=== PATIENT | female | born 1960 | race Caucasian/White ===

== ENCOUNTER 2021-09-01 10:51 | Emergency (ER) | payer MEDICARE ==
[~2021-09-01 10:51] MED LIST: ALBUTEROL2.5 MG/3 M INH; ALDACTONE 25MG25 MG PO; ATROVENT-HFA12.9 GM INH; CLINDAMYCIN HC300 MG PO; DOXYCYCLINE HY100 MG PO; ECOTRIN81 MG PO; FERROUS SULFAT325 M2 PO; FLOVENT INH; HUMULIN N100 UNIT/1 SC; HYDROCODON-ACE1 EAC4 PO; IPRAT-ALBUT 0.5-3 ML INH; K-DUR TAB 20 M20 MEQ PO; KEFLEX500 MG PO; LASIX40 MG PO; LEVAQUIN500 MG PO; LOPRESSOR 25 MG25 MG PO; MIRALAX17 GM PO; MUCINEX1200 MG PO; NASONEX17 GM; NEURONTIN 300300 MG PO; NORCO 5-325 TA1 EACH PO; NOVOLIN N100 UNIT/1 SQ; NOVOLIN R100 UNIT/2 SQ; NOVOLOG100 UNIT/1 SC; OMEPRAZOLE20 M1 PO; PREDNISONE 20 M20 MG PO; PREVACID30 MG PO; SURFAK240 MG PO; SYMBICORT 16010.2 GM INH; TRAMADOL HCL50 MG PO; VANCOMYCIN IV; VENTOLIN HFA 66.7 GM INH; VIBRAMYCIN 100100 MG GT; VIBRAMYCIN100 MG PO; VITAMIN C500 M4 PO; XOPENEX HFA15 GM INH; ZAROXOLYN/DIUL2.5 MG PO; [UNRECOGNIZED DRUG - OTHER] INH
[2021-09-01 12:24] LABS: HEMOGLOBIN 8.4 gm/dl (12.3-15.3); RED BLOOD COUNT 3.06 M/UL (4.00-5.10); WHITE BLOOD COUNT 6.8 K/UL (4.5-11.0)
== END 2021-09-01 13:35 | disposition home or self-care (01) ==
LOC: ER1 10:51
PROVIDERS: Physician Assistant
DX: D64.9 Anemia, unspecified (principal); N28.9 Disorder of kidney and ureter, unspecified; E11.9 Type 2 diabetes mellitus without complications; I50.9 Heart failure, unspecified; Z95.0 Presence of cardiac pacemaker
CPT/HCPCS: 80048; 81001; 85025; 99283

== ENCOUNTER 2021-09-27 20:57 | Inpatient (IN) | payer MEDICARE, MEDICAID ==
[~2021-09-27] VITALS: Ht 170.2 cm; Wt 116.8 kg
[~2021-09-27 20:57] MED LIST changes: -K-DUR TAB 20 M20 MEQ PO; -NEURONTIN 300300 MG PO; +NEURONTIN600 MG PO; +POTASSIUM CHLO20 ME2 PO; +PROAIR HFA8.5 GM INH; -VENTOLIN HFA 66.7 GM INH
[2021-09-27 22:06] LABS: HEMOGLOBIN 7.2 gm/dl (12.3-15.3); RED BLOOD COUNT 2.74 M/UL (4.00-5.10); WHITE BLOOD COUNT 6.8 K/UL (4.5-11.0)
[2021-09-27 22:20] LABS: BUN/CREATININE RATIO 22 (0-10)
[2021-09-28 08:17] LABS: RED BLOOD COUNT 2.76 M/UL (4.00-5.10); WHITE BLOOD COUNT 5.1 K/UL (4.5-11.0)
[2021-09-28 08:24] LABS: HEMOGLOBIN 6.9 gm/dl (12.3-15.3)
[2021-09-28 09:13] LABS: HEMOGLOBIN 7.3 gm/dl (12.3-15.3)
[2021-09-28] MEDS ORDERED: ELIQUIS5 MG PO (14:59)
--- NOTE | 2021-09-28 18:15 | NUR ---
contacted EMS for transport c/o Suzie and provided all information and Ms. Lawson took information and stated will call back.
[2021-09-29 04:52] LABS: HEMOGLOBIN 7.4 gm/dl (12.3-15.3); RED BLOOD COUNT 2.78 M/UL (4.00-5.10); WHITE BLOOD COUNT 4.7 K/UL (4.5-11.0)
[2021-09-29] MEDS ORDERED: MEDROL DOSEPAK 24 MG PO (10:24)
[2021-09-29] MEDS ORDERED: LASIX40 MG PO (10:24)
--- NOTE | 2021-09-29 10:36 | NUR ---
PATIENT RA SAT 82-86%
== END 2021-09-29 14:35 | disposition home or self-care (01) | DRG 189 ==
LOC: ER1 20:57 → CDU 23:57 → M/S 09-28 16:39
PROVIDERS: Internal Medicine; Physician Assistant; ADMIT Internal Medicine
PROC: 30233N1 Transfusion of Nonautologous Red Blood Cells into Peripheral Vein, Percutaneous Approach (ICD-10-PCS; principal; 2021-09-28)
DX: J96.01 Acute respiratory failure with hypoxia (principal); I50.23 Acute on chronic systolic (congestive) heart failure; I13.0 Hypertensive heart and chronic kidney disease with heart failure and stage 1 through stage 4 chronic kidney disease, or unspecified chronic kidney disease; J40 Bronchitis, not specified as acute or chronic; D63.1 Anemia in chronic kidney disease; E11.22 Type 2 diabetes mellitus with diabetic chronic kidney disease; E11.51 Type 2 diabetes mellitus with diabetic peripheral angiopathy without gangrene; I49.5 Sick sinus syndrome; N18.30 Chronic kidney disease, stage 3 unspecified; E66.9 Obesity, unspecified; Z95.0 Presence of cardiac pacemaker; Z79.01 Long term (current) use of anticoagulants; Z88.1 Allergy status to other antibiotic agents; Z98.891 History of uterine scar from previous surgery; Z89.431 Acquired absence of right foot; Z90.49 Acquired absence of other specified parts of digestive tract; Z88.0 Allergy status to penicillin; Z88.2 Allergy status to sulfonamides; Z68.37 Body mass index [BMI] 37.0-37.9, adult
CPT/HCPCS: 0240U; 36415; 36430; 71045; 80048; 80053; 81001; 82550; 82553; 82962; 83735; 83874; 83880; 84484; 85014; 85018; 85025; 85027; 85610; 85730; 86850; 86900; 86901; 86920; 87086; 93005; 94640; 94664; 96374; 96376; 99285; J1940; J2920; P9016

== ENCOUNTER 2021-11-13 15:22 | Inpatient (IN) | payer MEDICARE ==
[~2021-11-13] VITALS: Ht 170.2 cm; Wt 121.6 kg
[~2021-11-13 15:22] MED LIST changes: +ELIQUIS5 MG PO; +MEDROL DOSEPAK 24 MG PO; -POTASSIUM CHLO20 ME2 PO
[2021-11-13 17:32] LABS: RED BLOOD COUNT 2.38 M/UL (4.00-5.10); WHITE BLOOD COUNT 7.1 K/UL (4.5-11.0)
[2021-11-13 17:34] LABS: HEMOGLOBIN 6.7 gm/dl (12.3-15.3)
[2021-11-13] MEDS ORDERED: ENTRESTO 24 MG1 EACH PO (20:38)
[2021-11-13] MEDS ORDERED: ASPIRIN81 MG PO (20:40)
--- NOTE | 2021-11-13 20:57 | NUR ---
NOTIFIED DR LAYNE TO RESUME HOME MEDICATIONS. RECIEVED ORDERS TO RESUME GABAPENTIN BECAUSE PT WAS REQUESTING IT. RECIEVED NO FURTHER ORDERS. WILL CONTINUE TO MONITOR.
[2021-11-14 06:08] LABS: RED BLOOD COUNT 2.3 M/UL (4.00-5.10); WHITE BLOOD COUNT 5.5 K/UL (4.5-11.0)
[2021-11-14 06:11] LABS: HEMOGLOBIN 6.5 gm/dl (12.3-15.3)
--- NOTE | 2021-11-14 06:14 | NUR ---
NOTIFIED DR LAYNE OF CRITICAL HGB OF 6.5. RECIEVED ORDERS. WILL CONTINUE TO MONITOR.
[2021-11-14] MEDS ORDERED: FUROSEMIDE40 MG PO (12:39)
[2021-11-14 16:15] LABS: HEMOGLOBIN 8.9 gm/dl (12.3-15.3)
[2021-11-14] MEDS ORDERED: OMEPRAZOLE20 M1 PO (20:40)
[2021-11-14] MEDS ORDERED: POTASSIUM CHLO20 ME2 PO (21:38)
[2021-11-15 06:59] LABS: WHITE BLOOD COUNT 6.4 K/UL (4.5-11.0)
[2021-11-15 07:18] LABS: RED BLOOD COUNT 2.97 M/UL (4.00-5.10)
--- NOTE | 2021-11-16 09:02 | NUR ---
Patient has a bp reading of 91/45, patient says that her bp normally runs low. made aware.
[2021-11-16] MEDS ORDERED: FUROSEMIDE40 MG PO (11:19)
== END 2021-11-16 13:22 | disposition home or self-care (01) | DRG 811 ==
LOC: ER1 15:22 → M/S 18:16 → CDU 18:16 → M/S 19:56
PROVIDERS: Emergency Medicine; Internal Medicine; ADMIT Internal Medicine
PROC: 30233N1 Transfusion of Nonautologous Red Blood Cells into Peripheral Vein, Percutaneous Approach (ICD-10-PCS; principal; 2021-11-13)
PROC: B24BZZZ Ultrasonography of Heart with Aorta (ICD-10-PCS; 2021-11-14)
DX: D62 Acute posthemorrhagic anemia (principal); I50.23 Acute on chronic systolic (congestive) heart failure; J96.21 Acute and chronic respiratory failure with hypoxia; I13.0 Hypertensive heart and chronic kidney disease with heart failure and stage 1 through stage 4 chronic kidney disease, or unspecified chronic kidney disease; N17.9 Acute kidney failure, unspecified; E87.2 Acidosis; E87.1 Hypo-osmolality and hyponatremia; Z68.41 Body mass index [BMI] 40.0-44.9, adult; Z20.822 Contact with and (suspected) exposure to COVID-19; E11.22 Type 2 diabetes mellitus with diabetic chronic kidney disease; N18.9 Chronic kidney disease, unspecified; E66.01 Morbid (severe) obesity due to excess calories; E87.6 Hypokalemia; E11.65 Type 2 diabetes mellitus with hyperglycemia; K21.9 Gastro-esophageal reflux disease without esophagitis; I49.5 Sick sinus syndrome; W18.30XA Fall on same level, unspecified, initial encounter; H91.8X3 Other specified hearing loss, bilateral; E86.1 Hypovolemia; I73.9 Peripheral vascular disease, unspecified; R53.81 Other malaise; K59.00 Constipation, unspecified; Z79.4 Long term (current) use of insulin; Z95.810 Presence of automatic (implantable) cardiac defibrillator; Z90.49 Acquired absence of other specified parts of digestive tract; Z88.1 Allergy status to other antibiotic agents; Z88.0 Allergy status to penicillin; Z88.2 Allergy status to sulfonamides; Z88.8 Allergy status to other drugs, medicaments and biological substances
CPT/HCPCS: ECHO; 36415; 71045; 73502; 80048; 80053; 82550; 82553; 82962; 83735; 83880; 84484; 85014; 85018; 85025; 85027; 85610; 85730; 86850; 86900; 86901; 86920; 93005; 93306; 94640; 94664; 94760; 96374; 97162; 97530; 97530-GP-CQ; 99285; J1940; P9016; U0002

== ENCOUNTER 2021-11-24 14:41 | Emergency (ER) | payer MEDICARE ==
[~2021-11-24 14:41] MED LIST changes: +ASPIRIN81 MG PO; +ENTRESTO 24 MG1 EACH PO; +FUROSEMIDE40 MG PO; +POTASSIUM CHLO20 ME2 PO
[2021-11-24 15:52] LABS: HEMOGLOBIN 7.9 gm/dl (12.3-15.3); RED BLOOD COUNT 2.91 M/UL (4.00-5.10); WHITE BLOOD COUNT 6.3 K/UL (4.5-11.0)
== END 2021-11-24 17:20 | disposition home or self-care (01) ==
LOC: ER1 14:41
PROVIDERS: Emergency Medicine
DX: I11.0 Hypertensive heart disease with heart failure (principal); I50.9 Heart failure, unspecified; D16.21 Benign neoplasm of long bones of right lower limb; Z20.822 Contact with and (suspected) exposure to COVID-19; E11.9 Type 2 diabetes mellitus without complications; D64.9 Anemia, unspecified; Z88.2 Allergy status to sulfonamides; Z88.0 Allergy status to penicillin; Z88.1 Allergy status to other antibiotic agents; Z79.4 Long term (current) use of insulin
CPT/HCPCS: 0240U; 71045; 73562; 80053; 82550; 82553; 83735; 83880; 84100; 84439; 84443; 84484; 85025; 93005; 96374; 99285

== ENCOUNTER 2021-12-28 00:48 | Inpatient (IN) | payer MEDICARE ==
[~2021-12-28] VITALS: Ht 170.2 cm; Wt 122.5 kg
[~2021-12-28 00:48] MED LIST changes: +ASPIRIN EC81 MG PO; -ASPIRIN81 MG PO
[2021-12-28 03:53] LABS: RED BLOOD COUNT 2.41 M/UL (4.00-5.10); WHITE BLOOD COUNT 12.5 K/UL (4.5-11.0)
[2021-12-28 03:59] LABS: HEMOGLOBIN 5.9 gm/dl (12.3-15.3)
[2021-12-28] MEDS ORDERED: AZELASTINE137 MCG/0. (10:04)
[2021-12-28] MEDS ORDERED: FLONASE 0.05% N16 GM (10:05)
[2021-12-28] MEDS ORDERED: TRAMADOL HCL50 MG PO (10:06)
[2021-12-28 18:32] LABS: HEMOGLOBIN 7.3 gm/dl (12.3-15.3); WHITE BLOOD COUNT 11.1 K/UL (4.5-11.0)
[2021-12-28 19:02] LABS: RED BLOOD COUNT 2.83 M/UL (4.00-5.10)
[2021-12-29 02:26] LABS: RED BLOOD COUNT 2.72 M/UL (4.00-5.10); WHITE BLOOD COUNT 9.4 K/UL (4.5-11.0)
[2021-12-29 18:09] LABS: HEMOGLOBIN 7.8 gm/dl (12.3-15.3)
[2021-12-30 01:47] LABS: HEMOGLOBIN 8.2 gm/dl (12.3-15.3)
[2021-12-30 01:52] LABS: RED BLOOD COUNT 3.19 M/UL (4.00-5.10); WHITE BLOOD COUNT 12.8 K/UL (4.5-11.0)
[2021-12-31 02:30] LABS: HEMOGLOBIN 7.4 gm/dl (12.3-15.3); RED BLOOD COUNT 2.89 M/UL (4.00-5.10); WHITE BLOOD COUNT 10.6 K/UL (4.5-11.0)
[2022-01-01 02:08] LABS: HEMOGLOBIN 7.6 gm/dl (12.3-15.3); RED BLOOD COUNT 2.94 M/UL (4.00-5.10); WHITE BLOOD COUNT 11.2 K/UL (4.5-11.0)
[2022-01-01] MEDS ORDERED: FUROSEMIDE40 MG PO (09:36)
[2022-01-01] MEDS ORDERED: LEVOFLOXACIN500 MG PO (09:38)
[2022-01-02 16:11] LABS: A/G RATIO 1.1 (0.7-1.7); ALBUMIN 2.8 g/dL (2.9-4.4); ALPHA-1-GLOBULIN 0.3 g/dL (0.0-0.4); ALPHA-2-GLOBULIN 0.9 g/dL (0.4-1.0); BETA GLOBULIN 0.9 g/dL (0.7-1.3); GAMMA GLOBULIN 0.7 g/dL (0.4-1.8); GLOBULIN, TOTAL 2.7 g/dL (2.2-3.9); IMMUNOGLOBULIN A, QN, SERUM 366 mg/dL (87-352); IMMUNOGLOBULIN G, QN, SERUM 674 mg/dL (586-1602); IMMUNOGLOBULIN M, QN, SERUM 59 mg/dL (26-217); M-SPIKE Not Observed g/dL (Not Observed); PROTEIN, TOTAL, SERUM 5.5 g/dL (6.0-8.5)
== END 2022-01-01 16:15 | disposition home or self-care (01) | DRG 811 ==
LOC: ER1 00:48 → PROG CARE 06:39 → CDU 06:39 → PROG CARE 17:28
PROVIDERS: Family Medicine; Internal Medicine; ADMIT Internal Medicine
PROC: 30233N1 Transfusion of Nonautologous Red Blood Cells into Peripheral Vein, Percutaneous Approach (ICD-10-PCS; principal; 2021-12-29)
PROC: B24BZZZ Ultrasonography of Heart with Aorta (ICD-10-PCS; 2021-12-29)
PROC: 0DJ08ZZ Inspection of Upper Intestinal Tract, Via Natural or Artificial Opening Endoscopic (ICD-10-PCS; 2021-12-30)
PROC: 0W3P8ZZ Control Bleeding in Gastrointestinal Tract, Via Natural or Artificial Opening Endoscopic (ICD-10-PCS; 2021-12-30)
DX: D62 Acute posthemorrhagic anemia (principal); J18.9 Pneumonia, unspecified organism; J96.01 Acute respiratory failure with hypoxia; Z20.822 Contact with and (suspected) exposure to COVID-19; I50.43 Acute on chronic combined systolic (congestive) and diastolic (congestive) heart failure; I21.A1 Myocardial infarction type 2; K50.00 Crohn's disease of small intestine without complications; N39.0 Urinary tract infection, site not specified; N17.9 Acute kidney failure, unspecified; I13.0 Hypertensive heart and chronic kidney disease with heart failure and stage 1 through stage 4 chronic kidney disease, or unspecified chronic kidney disease; Z68.41 Body mass index [BMI] 40.0-44.9, adult; Q43.8 Other specified congenital malformations of intestine; K31.819 Angiodysplasia of stomach and duodenum without bleeding; N18.30 Chronic kidney disease, stage 3 unspecified; D63.1 Anemia in chronic kidney disease; E11.22 Type 2 diabetes mellitus with diabetic chronic kidney disease; I49.5 Sick sinus syndrome; B96.1 Klebsiella pneumoniae [K. pneumoniae] as the cause of diseases classified elsewhere; E66.01 Morbid (severe) obesity due to excess calories; R53.81 Other malaise; I48.91 Unspecified atrial fibrillation; Z99.3 Dependence on wheelchair; K44.9 Diaphragmatic hernia without obstruction or gangrene; K64.8 Other hemorrhoids; K63.5 Polyp of colon; K22.2 Esophageal obstruction; I11.0 Hypertensive heart disease with heart failure; K21.9 Gastro-esophageal reflux disease without esophagitis; E11.51 Type 2 diabetes mellitus with diabetic peripheral angiopathy without gangrene; Z79.4 Long term (current) use of insulin; Z79.2 Long term (current) use of antibiotics; Z79.82 Long term (current) use of aspirin; Z79.01 Long term (current) use of anticoagulants; Z95.0 Presence of cardiac pacemaker; Z89.431 Acquired absence of right foot; Z98.891 History of uterine scar from previous surgery; Z88.1 Allergy status to other antibiotic agents; Z88.0 Allergy status to penicillin; Z88.2 Allergy status to sulfonamides; Z74.01 Bed confinement status; Z87.440 Personal history of urinary (tract) infections
CPT/HCPCS: 36415; 36430; 71045; 76705; 80048; 80053; 81001; 82550; 82553; 82607; 82668; 82746; 82784; 82962; 83540; 83550; 83615; 83690; 83735; 83874; 83880; 83883; 84100; 84132; 84155; 84165; 84484; 85014; 85018; 85025; 85045; 85610; 86140; 86334; 86850; 86900; 86901; 86920; 87077; 87086; 87186; 93005; 93308; 94640; 94760; 96374; 96375; 97161; 97530; 99285; G0378; J0696; J1756; J1940; J3475; J3480; J7040; J7050; J7070; P9016; Q9957; U0002; U0003

== ENCOUNTER 2022-01-03 17:50 | Inpatient (IN) | payer MEDICARE, MEDICAID ==
[~2022-01-03] VITALS: Ht 170.2 cm; Wt 120.3 kg
[~2022-01-03 17:50] MED LIST changes: +AZELASTINE137 MCG/0.; +FLONASE 0.05% N16 GM; +LEVOFLOXACIN500 MG PO
[2022-01-03 19:20] LABS: RED BLOOD COUNT 3.64 M/UL (4.00-5.10); WHITE BLOOD COUNT 7.4 K/UL (4.5-11.0)
[2022-01-03 19:21] LABS: HEMOGLOBIN 9.6 gm/dl (12.3-15.3)
--- NOTE | 2022-01-04 02:49 | NUR ---
01/04/22 0115 PT ASK ABOUT HER NIGHT TIME MEDICATIONS. I EXPLAINED THAT IN THE MORNING PHARMACY WILL VERIFY HER HOME MEDICATIONS AND THEN THE DR WILL PUT IN THE MEDICATION HE/SHE WISHES TO CONTINUE. THE PATIENT STATED THAT SHE HAD TO HAVE HER NEURONTIN AND HER ALBUTEROL NEB TREATMENTS. I EXPLAINED THAT I WOULD CONTACT THE DR AND ASK FOR A ONE TIME ORDER UNTIL PHARMACY VERIFID HER MEDS IN THE MORNING, AND THE PATIENT WAS OK WITH THAT. DR FRAZIER WAS NOTIFIED AND HE GAVE A ONE TIME ORDER FOR NEURONTIN 600 MG, AND TRAMADOL 50 MG ONE TIME. ALBUTEROL NEB TREATMENT Q4H. I ASK GUDELIA (MOISE) TO GET HER BP SINCE I HAD ALREADY GIVEN HER LASIX 60 MG ORDERED AT 2330. SBP RANGED FROM LOW 90'S TO MID 70'S. I WENT IN AND THE PATIENT ASK WHAT SHE COULD DO FOR ME AND I SAID, "LET'S GET A BETTER BLOOD PRESSURE". SHE STATED THAT WHAT THE TECH GOT WAS A GOOD BLOOD PRESSURE FOR HER. I EXPLAINED THAT I NEEDED A BETTER BLOOD PRESSURE OR I COULDN'T GIVE THE NEURONTIN 600 MG. THE PATIENT THEN SAID, WELL I HAVE TO HAVE THE NEURONTIN REGARDLESS. I EXPLAINED THAT I WANTED TO KEEP HER COMFORTABLE POSSIBLE, BUT I HAD TO KEEP STABLE. DURING THIS TIME I AM POSITIONING THE BP CUFF AN TAKING HER BP. SHE THEN STATES THAT SHE AND I WOULD HAVE TO COME TO SOME KIND OF COMPROMISE BECAUSE SHE HAD TO HAVE HER NEURONTIN ONE WAY OR THE OTHER, AND STATED THAT SHE WOULDN'T EVEN TAKE HER BP AT HOME BEFORE TAKING HER MEDS. I THEN EXPLAINED THAT SHE WAS AT THE HOSPITAL AND I WAS RESPONSIBLE FOR THE MEDICATIONS THAT I GAVE HER. AND HOPEFULLY HER BP WOULD BE FINE AND WE WOULDN'T HAVE TO WORRY ABOUT IT. SHE SAID WELL WE'RE GOING TO HAVE TO COMPROMISE SOMEWHERE. I EXPLAINED THAT I UNDERSTOOD BUT I WOULDN'T COMPROMISE AND GIVE 600MG OF NEURONTIN WITH A SBP IN THE 70'S, 80'S OR EVEN IN THE LOW 90'S. SHE THEN SAID THAT IF I DIDN'T GIVE IT TO HER, SHE WOULD HAVE HER FAMILY BRING IT FROM HOME. I EXPLAINED THAT SHE COULD DO THAT BUT WE WOULD HAVE TO HAVE PHARMACY PUT THE MEDICATION IN A NON-FORMULARY MED SO IT COULD BE DOCUMENTED WHAT WAS TAKEN. HER BP WAS 102/43 AND I GAVE THE NEURONTIN 600 MG BUT I HELD THE TRAMADOL 50 MG (SHE DIDN'T EVEN KNOW HE PUT IN) AND THE PATIENT WAS SATISFIED.
[2022-01-04 03:01] LABS: HEMOGLOBIN 8.4 gm/dl (12.3-15.3); WHITE BLOOD COUNT 5.8 K/UL (4.5-11.0)
[2022-01-04 03:07] LABS: RED BLOOD COUNT 3.22 M/UL (4.00-5.10)
--- NOTE | 2022-01-04 03:33 | NUR ---
01/03/22 AFTER PICTURE WAS TAKEN AND ADMIT COMPLETE AT 2300 PT WAS POSITIONED ON HER BACK. 01/04/22 0000 PT WAS REPOSITIONED BY ME AND THE MOISE GALEAS AND TURNED PER THE PATIENT'S REQUEST TO HER LEFT SIDE WITH A PILLOW BEHIND HER BACK AND BETWEEN HER KNEES. 01/04/22 0200 WHEN WE WENT TO REPOSITION PT SHE REQUESTED THAT SHE BE PUT ON HER BACK.
--- NOTE | 2022-01-04 06:27 | NUR ---
PT BP 81/35 AND HAS LASIX 60MG DUE. NOTIFIED DR FRAZIER; ORDER TO HOLD LASIX FOR NOW AND RECHECK IN 30 MIN. WILL LET [facility]SHIFT KNOW TO RECHECK BP IN 30 MIN.
[2022-01-04] MEDS ORDERED: FUROSEMIDE40 MG PO (09:55)
[2022-01-04] MEDS ORDERED: LEVOFLOXACIN500 MG PO (09:57)
[2022-01-04] MEDS ORDERED: MIRALAX17 GM PO (09:58)
[2022-01-04 11:23] LABS: HEMOGLOBIN 8.9 gm/dl (12.3-15.3)
[2022-01-05 03:09] LABS: HEMOGLOBIN 8.9 gm/dl (12.3-15.3); RED BLOOD COUNT 3.37 M/UL (4.00-5.10); WHITE BLOOD COUNT 6.8 K/UL (4.5-11.0)
[2022-01-06 02:04] LABS: HEMOGLOBIN 9.2 gm/dl (12.3-15.3); RED BLOOD COUNT 3.51 M/UL (4.00-5.10)
[2022-01-06 02:13] LABS: WHITE BLOOD COUNT 9.1 K/UL (4.5-11.0)
[2022-01-07 01:33] LABS: HEMOGLOBIN 8.1 gm/dl (12.3-15.3)
[2022-01-07 02:04] LABS: RED BLOOD COUNT 3.09 M/UL (4.00-5.10); WHITE BLOOD COUNT 5.6 K/UL (4.5-11.0)
--- NOTE | 2022-01-09 07:29 | NUR ---
PT NOTED TO BE EATING ARBYS AND DRINKING SODA POP THAT FAMILY HAD BROUGHT IN. EXPLAINED IMPORTANCE OF RENAL DIET WITH VOICED UNDERSTANDING.
--- NOTE | 2022-01-09 20:53 | NUR ---
late entry 1929 patient educated on fluid restriction of 1500/daily, patient verbalized understanding
--- NOTE | 2022-01-10 11:55 | NUR ---
01/10/22 1150 POX 88% ON ROOM AIR
[2022-01-11] MEDS ORDERED: BUMETANIDE1 MG PO (09:58)
[2022-01-11] MEDS ORDERED: FERROUS SULFAT325 M2 PO (09:58)
--- NOTE | 2022-01-11 11:51 | NUR ---
CALLED REPORT TO [facility]. SPOKE WITH RISHI.
== END 2022-01-11 12:25 | disposition home or self-care (01) | DRG 291 ==
LOC: ER1 17:50 → CDU 20:40 → MED SURG 4 20:40 → PROG CARE 20:40 → CDU 20:40 → MED SURG 4 22:22 → PROG CARE 01-04 07:30
PROVIDERS: Internal Medicine; Internal Medicine Nephrology; Physician Assistant; ADMIT Internal Medicine
PROC: 3E043XZ Introduction of Vasopressor into Central Vein, Percutaneous Approach (ICD-10-PCS; principal; 2022-01-05)
DX: I13.0 Hypertensive heart and chronic kidney disease with heart failure and stage 1 through stage 4 chronic kidney disease, or unspecified chronic kidney disease (principal); I50.33 Acute on chronic diastolic (congestive) heart failure; R57.0 Cardiogenic shock; Z20.822 Contact with and (suspected) exposure to COVID-19; R57.1 Hypovolemic shock; N17.0 Acute kidney failure with tubular necrosis; J96.01 Acute respiratory failure with hypoxia; I47.1 Supraventricular tachycardia; Z68.41 Body mass index [BMI] 40.0-44.9, adult; E11.22 Type 2 diabetes mellitus with diabetic chronic kidney disease; D50.9 Iron deficiency anemia, unspecified; J44.9 Chronic obstructive pulmonary disease, unspecified; I49.5 Sick sinus syndrome; N18.30 Chronic kidney disease, stage 3 unspecified; D63.1 Anemia in chronic kidney disease; R53.81 Other malaise; E86.1 Hypovolemia; K21.9 Gastro-esophageal reflux disease without esophagitis; I48.0 Paroxysmal atrial fibrillation; E88.09 Other disorders of plasma-protein metabolism, not elsewhere classified; Z79.01 Long term (current) use of anticoagulants; Z79.82 Long term (current) use of aspirin; Q27.33 Arteriovenous malformation of digestive system vessel; Z95.810 Presence of automatic (implantable) cardiac defibrillator; Z86.73 Personal history of transient ischemic attack (TIA), and cerebral infarction without residual deficits; Z90.49 Acquired absence of other specified parts of digestive tract; Z89.431 Acquired absence of right foot; Z98.891 History of uterine scar from previous surgery; Z88.1 Allergy status to other antibiotic agents; Z88.0 Allergy status to penicillin; Z88.2 Allergy status to sulfonamides; Z79.4 Long term (current) use of insulin
CPT/HCPCS: 36415; 36600; 71045; 80048; 80053; 81001; 82533; 82550; 82553; 82570; 82728; 82803; 82962; 83036; 83540; 83550; 83605; 83735; 83880; 84133; 84156; 84300; 84439; 84443; 84484; 85014; 85018; 85025; 85027; 85379; 87040; 87086; 89050; 93005; 94640; 94664; 94760; 94762; 96374; 96375; 96376; 97162; 97166; 99284; G0378; J1940; P9047; U0002